=== PATIENT | male | born 1965 | race Two or more races ===

== ENCOUNTER 2019-05-12 23:58 | Emergency (ER) | payer MEDICAID, OTHER ==
[~2019-05-12] VITALS: Ht 172.7 cm; Wt 72.6 kg
[~2019-05-12 23:58] MED LIST: CYCLOBENZAPRINE10 MG ORAL; IBUPROFEN600 MG ORAL; NORCO 5-325 TA1 EACH ORAL
--- NOTE | 2019-05-13 | NUR ---
ED Nurse Note: pt walked in c/o left elbow pain since this morning, pt denies any recent injuries nor trauma, reports he woke up with pain and progressively worsening. noted tenderness and swelling in left elbow, no deformity nor contusion nor open wound noted, cms intact, will cont monitor.
[2019-05-13 00:10] VITALS: BP 140/89
[2019-05-13] MEDS ORDERED: NAPROXEN250 MG ORAL (00:22)
--- NOTE | 2019-05-13 00:22 | Emergency Room Report ---
History of Present Illness General Chief Complaint: Upper Extremity Injury Source: Patient Present Illness HPI 54-year-old male presents with left elbow pain he noticed swelling on the outer aspect, states he is got pressure-like pain when he flexes his elbow no fever no chills, severity is mild, intermittent, no fever no chills no chest pain no shortness of breath patient presents for evaluation Allergies: Coded Allergies: No Known Allergies (Unverified , 05/13/19) Patient History Past Medical History: see triage record Reviewed Nursing Documentation: PMH: Agreed; PSxH: Agreed Nursing Documentation-PMH Hx Hypertension: Yes Review of Systems All Other Systems: negative except mentioned in HPI Physical Exam Vital Signs Date Time Temp Pulse Resp B/P (MAP) Pulse Ox O2 Delivery O2 Flow Rate FiO2 05/13/19 00:04 97.9 64 18 140/89 (106) 96 Room Air General Appearance: well appearing, no apparent distress Head: normocephalic, atraumatic ENT: hearing grossly normal, normal voice Neck: full range of motion, supple Respiratory: no respiratory distress, speaking full sentences Musculoskeletal: other - Left upper external knee: Swelling along the left outer aspect of the left elbow, patient is able to range his left elbow without any issues, he has pressure-like pain when he flexes his elbow completely, 2+ radial pulses, radial median ulnar nerve intact Neurologic: alert, normal gait Psychiatric: mood/affect normal Skin: no rash Medical Decision Making Diagnostic Impression: Primary Impression: Olecranon bursitis of left elbow ER Course 54-year-old male presents most likely with olecranon bursitis of the left elbow no evidence of septic joint at this moment Patient given strict return precautions to return if he has fever chills, worsening redness Will provide patient with follow-up with orthopedics Pain well controlled in the ED disposition home with return precautions Last Vital Signs Date Time Temp Pulse Resp B/P (MAP) Pulse Ox O2 Delivery O2 Flow Rate FiO2 05/13/19 00:04 97.9 64 18 140/89 (106) 96 Room Air Disposition: HOME, SELF-CARE Condition: Stable Scripts Naproxen* (NAPROSYN*) 250 Mg Tablet 250 MG ORAL BID PRN for For Pain, #20 TAB 0 Refills Prov: Zaire Galeana MD 05/13/19 Referrals: [facility],REFERRING (PCP) [facility] Patient Instructions: Olecranon Bursitis With Rehab-SportsMed Additional Instructions: The patient was provided with discharge instructions, notified to follow-up with a primary care doctor and or specialist in the next 24-48 hours, and to return to the ED if they have worsening of their symptoms. Please note that this report is being documented using DRAGON technology. This can lead to erroneous entry secondary to incorrect interpretation by the dictating instrument. PLEASE RETURN IF YOU HAVE WORSENING PAIN, FEVER OR CHILLS, OR REDNESS Zaire Galeana MD May 13, 2019 00:22
[2019-05-13] MEDS ORDERED: Ketorolac 60mg Inj IM ONE (00:30)
[2019-05-13] MEDS ORDERED: oxyCODONE HCL/Acetaminophen 5/325mg ORAL ONE (00:30)
[2019-05-13 00:31] VITALS: BP 132/73
--- NOTE | 2019-05-13 00:31 | NUR ---
ED Nurse Note: pt cleared to be d/c per ermd, pt discharge and aftercare instruction provided w/ prescription, pt education done via discussion and handout, pt advised to follow up with investor relations specialist or return to ed if changes in condition, vss, ambulatory w/ steady gait, left w/ all belongings.
== END 2019-05-13 00:31 | disposition home or self-care (01) ==
LOC: EMR 05-13 00:11
DX: M70.22 Olecranon bursitis, left elbow (principal); I10 Essential (primary) hypertension
CPT/HCPCS: 96372; 99283